=== PATIENT | female | born 1960 | race Hispanic/Latino ===

== ENCOUNTER 2020-08-27 16:52 | Emergency (ER) | payer BC ==
[2020-08-27] MEDS ORDERED: HYDROcodone 10MG/APAP 325MG 1 EA TAB PO ONE (17:09)
[2020-08-27] MEDS ORDERED: IBUPROFEN 200 MG TAB PO ONE (17:09)
--- NOTE | 2020-08-27 17:39 | RAD ---
EXAM: Three view(s) of the right knee. INDICATION: Pain. COMPARISON: None. FINDINGS: There is a nondisplaced fracture involving the lateral condyle of the proximal tibia without definite extension into the articular surface. No other fracture is identified. A moderate-sized suprapatellar lipohemarthrosis is noted. No radiopaque foreign body. IMPRESSION: Nondisplaced fracture involving the lateral condyle of the proximal tibia without definite extension into the articular surface. Moderate sized suprapatellar lipohemarthrosis. Electronically signed by: Constantino Camarena MD 08/27/2020 5:38 PM CDT
--- NOTE | 2020-08-27 17:44 | ED.PDOC ---
History of Present Illness - General Chief Complaint: General Stated Complaint: R knee pain r/t a fall Time Seen by Provider: 08/27/20 17:08 Source: patient, RN notes reviewed, Vital Signs reviewed, family Exam Limitations: no limitations - History of Present Illness Initial Comments: This is a 60-year-old female presenting to the emergency department with right knee pain onset after a dog hit her knee from the the right side. She states she was standing in a gait when the dog was running chasing the ball and hit her lateral knee. She has been unable to bear weight since the injury happened approximately 1 hour ago. No other injuries. No hip pain, no back pain, no neck pain. No head injury. No loss of consciousness. Allergies/Adverse Reactions: Allergies Codeine Allergy (Verified 08/27/20 18:03) Home Medications: Ambulatory Orders HYDROcodone 10MG/APAP 325MG [[place] 10/325] 1 ea PO Q6H PRN #20 tab 08/27/20 Review of Systems - Review of Systems Musculoskeletal: States: joint pain, joint swelling. Denies: back pain, neck pain Neurological: Denies: headache, numbness, tingling, weakness Past Medical History (General) - Patient Medical History Hx Stroke: No Hx of COPD: No Hx Cardiac Disorders: No Hx Hypertension: No Hx Diabetes: No Hx Cancer: No Surgical History: other - Vaccination History Hx Tetanus, Diphtheria Vaccination: No Hx Influenza Vaccination: Yes - Social History Hx Tobacco Use: No Hx Alcohol Use: Yes Hx Substance Use: No Hx Substance Use Treatment: No Hx Depression: No - Female History Patient is a Female of Child Bearing Age (10 -59 yrs old): Yes Patient : No Family Medical History - Family History Mother Hx Family Diabetes: Yes Hx Family Cancer: Yes Physical Exam - Physical Exam General Appearance: Alert, Comfortable Ears, Nose, Throat: normal ENT inspection Neck: non-tender, full range of motion Respiratory: normal breath sounds, no respiratory distress Cardiovascular/Chest: normal peripheral pulses, regular rate, rhythm, no edema Gastrointestinal/Abdominal: non tender, soft Back Exam: normal inspection, no vertebral tenderness Extremity: other - Patient localizes pain to the right knee. She has an effusion of the right knee, no reproducible tenderness of the knee, no deformities. Patient has significant pain with flexion of the knee. Negative anterior/posterior drawer. Neurologic: no motor/sensory deficits, normal mood/affect, oriented x 3 Skin Exam: normal color, warm/dry Progress - Progress Progress: 08/27/20 17:[address] Castro. Left message for call back. 08/27/20 18:[address] 08/27/20 18:[address] Castro. He reviewed x-ray and CT, recommends nonweightbearing, knee immobilizer, crutches, will follow-up in office later this week to discuss surgical management. 08/27/20 19:[address] findings and plan for outpatient follow-up with Ortho. Opiate warnings given. Strict warnings given to return the emergency room for worsening pain, numbness/tingling, any other injuries, or other concerns. DDx: Fracture, internal derangement, meniscus tear MDM: Right knee pain after she was hit by a dog. Initial x-ray was equivocal for tibial plateau fracture, CT showed comminuted tibial plateau fracture with lipohemarthrosis. Placed in knee immobilizer, crutches, discussed nonweightbearing status and need for follow-up with Ortho and anticipated need for surgical management. Opiate warnings given. Pepito Downing DO [facility] #[id number] - Results/Orders Results/Orders: EXAM: Three view(s) of the right knee. INDICATION: Pain. COMPARISON: None. FINDINGS: There is a nondisplaced fracture involving the lateral condyle of the proximal tibia without definite extension into the articular surface. No other fracture is identified. A moderate-sized suprapatellar lipohemarthrosis is noted. No radiopaque foreign body. IMPRESSION: Nondisplaced fracture involving the lateral condyle of the proximal tibia without definite extension into the articular surface. Moderate sized suprapatellar lipohemarthrosis. Electronically signed by: Constantino Camarena MD 08/27/2020 5:38 PM CDT I reviewed the Knee x-ray personally. I feel there may be an intra-articular fracture line on x-ray concerning for lateral tibial plateau fracture. This would be commensurate with her level of pain. Will obtain CT EXAM DESCRIPTION: Lower Extremity CLINICAL HISTORY: 60 years Female fx prox tibial, rule out intra-articular COMPARISON: 08/27/2020 5:20 PM. TECHNIQUE: Contiguous axial CT images obtained through the right knee without IV contrast. Reformatted images obtained. This exam was performed according to our department optimization program which includes automated exposure control, adjustment of the mA and/or kv according to patient size and/or use of iterative reconstruction technique. FINDINGS: There is a comminuted intra-articular fracture of the lateral tibial plateau with depression of segments of the fracture fragments. Moderate lipohemarthrosis. IMPRESSION: Comminuted intra-articular lateral tibial plateau fracture with depression of the central fracture fragments Moderate lipohemarthrosis Electronically signed by: Leatha Adams MD 08/27/2020 7:06 PM Departure - Departure Clinical Impression: Tibial plateau fracture, right Qualifiers: Encounter type: initial encounter Fracture type: closed Qualified Code(s): S82.141A - Displaced bicondylar fracture of right tibia, initial encounter for closed fracture Disposition: Discharge to Home or Self Care Condition: Good Departure Forms: ED Discharge - Pt. Copy, Patient Portal Self Enrollment, Work Release Form Instructions: Tibial Plateau Fracture (DC), Opioids for Short-Term Treatment of Pain, Weight-Bearing Restrictions Referrals: Ashish Castro MD [Active Staff] - 1-5 Days Petr Villafana MD [Primary Care Provider] - 1-2 Weeks Prescriptions: HYDROcodone 10MG/APAP 325MG [[place] 10/325] 1 ea PO Q6H PRN #20 tab PRN Reason: Moderate To Severe Pain Home Medications: Ambulatory Orders HYDROcodone 10MG/APAP 325MG [[place] 10/325] 1 ea PO Q6H PRN #20 tab 08/27/20
[2020-08-27] MEDS ORDERED: HYDROCOD/APAP 10/325 (ER DISP) # 3 tablets PO ONE (19:04)
--- NOTE | 2020-08-27 19:07 | CT ---
EXAM DESCRIPTION: Lower Extremity CLINICAL HISTORY: 60 years Female fx prox tibial, rule out intra-articular COMPARISON: 08/27/2020 5:20 PM. TECHNIQUE: Contiguous axial CT images obtained through the right knee without IV contrast. Reformatted images obtained. This exam was performed according to our department optimization program which includes automated exposure control, adjustment of the mA and/or kv according to patient size and/or use of iterative reconstruction technique. FINDINGS: There is a comminuted intra-articular fracture of the lateral tibial plateau with depression of segments of the fracture fragments. Moderate lipohemarthrosis. IMPRESSION: Comminuted intra-articular lateral tibial plateau fracture with depression of the central fracture fragments Moderate lipohemarthrosis Electronically signed by: Leatha Adams MD 08/27/2020 7:06 PM CDT
[2020-08-27 19:15] VITALS: O2SAT 97
[2020-08-27 19:17] VITALS: BP 165/112; TEMP 97.1
== END 2020-08-27 19:15 | disposition home or self-care (01) ==
LOC: ER 16:52
DX: S82.141A Displaced bicondylar fracture of right tibia, initial encounter for closed fracture (principal); Z88.5 Allergy status to narcotic agent; W54.1XXA Struck by dog, initial encounter; Y92.9 Unspecified place or not applicable